=== PATIENT | male | born 1990 | race African-American/Black ===

== ENCOUNTER 2020-10-24 08:38 | Emergency (ER) | payer MEDICAID, MEDICARE ==
[2020-10-24] MEDS ORDERED: Sodium Chloride 0.9% 1,000 ML IV ONE (08:44)
[2020-10-24] MEDS ORDERED: Sodium Chloride 0.9% 2.5 ML Syringe FLUSH PRN (08:44)
[2020-10-24] MEDS ORDERED: Sodium Chloride 0.9% 10 ML Syringe FLUSH PRN (08:44)
--- NOTE | 2020-10-24 08:45 | EDM.PDOC ---
ED HPI GENERAL MEDICAL PROBLEM - General Chief Complaint: Gastrointestinal Problem Stated Complaint: ABDOMINAL PAIN LOOSE STOOL Time Seen by Provider: 10/24/20 08:44 Source of Information: Reports: Patient History Limitations: Reports: No Limitations - History of Present Illness INITIAL COMMENTS - FREE TEXT/NARRATIVE: 29-year-old male presents for abdominal pain and diarrhea. Past surgical history appendectomy, no medical history. He has noted diarrhea times roughly 8 episodes per day for 7 days. No associated nausea or vomiting. He does experience generalized cramping abdominal pain that seems to be relieved after episodes of diarrhea. Is worse in his left lower quadrant. No recent antibiotic use. No fevers. - Related Data Allergies Allergy/AdvReac Type Severity Reaction Status Date / Time No Known Allergies Allergy Verified 10/24/20 09:14 Home Meds: Home Meds Ciprofloxacin [Ciprofloxacin HCl] 500 mg PO BID 5 Days #10 tab 10/24/20 [Rx] Losartan [Cozaar] 25 mg PO DAILY #30 tab 10/24/20 [Rx] ED ROS GENERAL - Review of Systems Review Of Systems: Comprehensive ROS is negative, except as noted in HPI. ED EXAM, GENERAL - Physical Exam Exam: See Below Exam Limited By: No Limitations General Appearance: Alert, WD/WN, No Apparent Distress Ears: Hearing Grossly Normal Throat/Mouth: Normal Voice, No Airway Compromise Head: Atraumatic, Normocephalic Neck: Normal Inspection Respiratory/Chest: No Respiratory Distress, Lungs Clear, Normal Breath Sounds, No Accessory Muscle Use Cardiovascular: Normal Peripheral Pulses, Regular Rate, Rhythm GI/Abdominal: Soft, Other (Left lower quadrant tenderness to palpation). No: Guarding, Rigid Extremities: Normal Inspection Neurological: Alert, Normal Cognition, Normal Gait Psychiatric: Normal Affect, Normal Mood Skin Exam: Warm, Dry, Intact, Normal Color Course - Vital Signs Last Recorded V/S: Last Vital Signs Temp 97.9 F 10/24/20 08:50 Pulse 103 H 10/24/20 10:54 Resp 16 10/24/20 10:54 BP 116/66 10/24/20 10:54 Pulse Ox 96 10/24/20 10:54 - Orders/Labs/Meds Orders: Active Orders 24 hr Category Date Time Status OVA & PARASITES BY IMMUNOASSAY [MREF] Stat Lab 10/24/20 09:20 Ordered STOOL CULTURE/SHIGA TOXIN [MREF] Stat Lab 10/24/20 09:20 Ordered Sodium Chloride 0.9% [Saline Flush] Med 10/24/20 08:44 Active 10 ml FLUSH ASDIRECTED PRN Sodium Chloride 0.9% [Saline Flush] Med 10/24/20 08:44 Active 2.5 ml FLUSH ASDIRECTED PRN Saline Lock Insert [OM.PC] Stat Oth 10/24/20 08:44 Ordered Medication Orders Sodium Chloride (Sodium Chloride 0.9% 10 Ml Syringe) 10 ml FLUSH ASDIRECTED PRN PRN Reason: Keep Vein Open Last Admin: 10/24/20 09:07 Dose: 10 ml Documented by: LIZ Sodium Chloride (Sodium Chloride 0.9% 2.5 Ml Syringe) 2.5 ml FLUSH ASDIRECTED PRN PRN Reason: Keep Vein Open Last Admin: 10/24/20 09:07 Dose: 2.5 ml Documented by: LIZ Labs: Laboratory Tests 10/24/20 10/24/20 Range/Units 09:35 09:35 WBC 6.62 (4.0-11.0) K/uL RBC 5.18 (4.50-5.90) M/uL Hgb 16.0 (13.0-17.0) g/dL Hct 48.2 (38.0-50.0) % MCV 93.1 (80.0-98.0) fL MCH 30.9 (27.0-32.0) pg MCHC 33.2 (31.0-37.0) g/dL RDW Std Deviation 48.8 (28.0-62.0) fl RDW Coeff of Melyssa 14 (11.0-15.0) % Plt Count 284 (150-400) K/uL MPV 10.20 (7.40-12.00) fL Neut % (Auto) 34.7 L (48.0-80.0) % Lymph % (Auto) 48.0 H (16.0-40.0) % [place] % (Auto) 14.7 (0.0-15.0) % Eos % (Auto) 2.1 (0.0-7.0) % Baso % (Auto) 0.5 (0.0-1.5) % Neut # (Auto) 2.3 (1.4-5.7) K/uL Lymph # (Auto) 3.2 H (0.6-2.4) K/uL [place] # (Auto) 1.0 H (0.0-0.8) K/uL Eos # (Auto) 0.1 (0.0-0.7) K/uL Baso # (Auto) 0.0 (0.0-0.1) K/uL Nucleated RBC % 0.0 /100WBC Nucleated RBCs # 0 K/uL Sodium 143 (136-148) mmol/L Potassium 3.8 (3.5-5.1) mmol/L Chloride 107 (98-107) mmol/L Carbon Dioxide 30.0 (21.0-32.0) mmol/L BUN 8 (7.0-18.0) mg/dL Creatinine 1.1 (0.8-1.3) mg/dL Est Cr Clr Drug Dosing 99.09 mL/min Estimated GFR (MDRD) > 60.0 ml/min Glucose 95 (74-106) mg/dL Calcium 8.6 (8.5-10.1) mg/dL Magnesium 2.2 (1.8-2.4) mg/dL Total Bilirubin 0.6 (0.2-1.0) mg/dL AST 29 (15-37) IU/L ALT 41 (14-63) IU/L Alkaline Phosphatase 104 (46-116) U/L Total Protein 8.7 H (6.4-8.2) g/dL Albumin 3.6 (3.4-5.0) g/dL Globulin 5.1 H (2.6-4.0) g/dL Albumin/Globulin Ratio 0.7 L (0.9-1.6) Lipase 79 (73-393) U/L Meds: Medications Generic Name Dose Route Start Last Admin Trade Name Freq PRN Reason Stop Dose Admin Sodium Chloride 10 ml 10/24/20 08:44 10/24/20 09:07 Sodium Chloride 0.9% 10 Ml Syringe FLUSH 10 ml ASDIRECTED PRN Administration Keep Vein Open Sodium Chloride 2.5 ml 10/24/20 08:44 10/24/20 09:07 Sodium Chloride 0.9% 2.5 Ml Syringe FLUSH 2.5 ml ASDIRECTED PRN Administration Keep Vein Open Discontinued Medications Generic Name Dose Route Start Last Admin Trade Name Freq PRN Reason Stop Dose Admin Sodium Chloride 1,000 mls @ 999 mls/hr 10/24/20 08:44 10/24/20 09:00 Normal Saline IV 10/24/20 09:44 999 mls/hr .Bolus ONE Administration Iopamidol 100 ml 10/24/20 10:46 10/24/20 10:48 Iopamidol 755 Mg/Ml 500 Ml Multipack Bottle IVPUSH 10/24/20 10:47 100 ml ONETIME STA Administration Labetalol HCl 20 mg 10/24/20 10:15 10/24/20 10:22 Labetalol 100 Mg/20 Ml Mdv IVPUSH 10/24/20 10:16 20 mg ONETIME ONE Administration Protocol - Re-Assessments/Exams Free Text/Narrative Re-Assessment/Exam: 10/24/20 09:24 We will give IV fluid bolus. Will get CT scanning of the abdomen and pelvis to rule out diverticulitis versus other emergent intra-abdominal pathology. We will send stool studies if patient is able to provide a sample. 10/24/20 10:21 Patient noted to have hypertension to systolic 200s. Will change order to a CTA of the abdomen and pelvis although my suspicion of dissection or aneurysm is quite low. Labetalol 20 mg ordered. 10/24/20 11:56 CT imaging is unremarkable. Will discharge patient with prescription for stool studies, 5-day course of ciprofloxacin, losartan for hypertension. Departure - Departure Time of Disposition: 11:56 Disposition: Home, Self-Care 01 Condition: Good Clinical Impression: Diarrhea Qualifiers: Diarrhea type: unspecified type Qualified Code(s): R19.7 - Diarrhea, unspecified - Discharge Information Prescriptions: Ciprofloxacin [Ciprofloxacin HCl] 500 mg PO BID 5 Days #10 tab Losartan [Cozaar] 25 mg PO DAILY #30 tab Instructions: Diarrhea, Adult Referrals: PCP,Not In Area [Primary Care Provider] - Forms: ED Department Discharge Additional Instructions: Your emergency department work-up was unremarkable. Your white blood cell count is normal. Your CT scan was normal. Your blood pressure is quite high. I prescribed an antihypertensive and sent to your pharmacy. It is a relatively low dose because we like to start low and increase if needed so it might not be enough to control your blood pressure. Also prescribed a 5-day course of ciprofloxacin which is an antibiotic. We have given you a prescription for stool studies if symptoms do not improve for further work-up of your diarrhea. The following information is given to patients seen in the emergency department who are being discharged to home. This information is to outline your options for follow-up care. We provide all patients seen in our emergency department with a follow-up referral. The need for follow-up, as well as the timing and circumstances, are variable depending upon the specifics of your emergency department visit. If you don't have a primary care physician on staff, we will provide you with a referral. We always advise you to contact your personal physician following an emergency department visit to inform them of the circumstance of the visit and for follow-up with them and/or the need for any referrals to a consulting specialist. The emergency department will also refer you to a specialist when appropriate. This referral assures that you have the opportunity for follow-up care with a specialist. All of these measure are taken in an effort to provide you with optimal care, which includes your follow-up. Under all circumstances we always encourage you to contact your private physician who remains a resource for coordinating your care. When calling for follow-up care, please make the office aware that this follow-up is from your recent emergency room visit. If for any reason you are refused follow-up, please contact the [facility] Emergency Department at and asked to speak to the emergency department charge nurse. Please follow up with your primary care physician. If you do not have a primary care physician, see below: [facility] [address] [place] [id number] [facility] [address] [place] [id number] [facility] [address] [place] [id number] Sepsis Event Note (ED) - Focused Exam Vital Signs: Vital Signs Temp Pulse Resp BP Pulse Ox 10/24/20 10:54 103 H 16 116/66 96 10/24/20 10:10 93 16 219/116 H 98 10/24/20 08:50 97.9 F 102 H 16 188/112 H 95 - My Orders Last 24 Hours: My Active Orders 10/24/20 08:44 Sodium Chloride 0.9% [Saline Flush] 10 ml FLUSH ASDIRECTED PRN Sodium Chloride 0.9% [Saline Flush] 2.5 ml FLUSH ASDIRECTED PRN Saline Lock Insert [OM.PC] Stat 10/24/20 09:20 OVA & PARASITES BY IMMUNOASSAY [MREF] Stat STOOL CULTURE/SHIGA TOXIN [MREF] Stat - Assessment/Plan Last 24 Hours: My Active Orders 10/24/20 08:44 Sodium Chloride 0.9% [Saline Flush] 10 ml FLUSH ASDIRECTED PRN Sodium Chloride 0.9% [Saline Flush] 2.5 ml FLUSH ASDIRECTED PRN Saline Lock Insert [OM.PC] Stat 10/24/20 09:20 OVA & PARASITES BY IMMUNOASSAY [MREF] Stat STOOL CULTURE/SHIGA TOXIN [MREF] Stat
[2020-10-24 10:11] LABS: BLOOD UREA NITROGEN,BUN 8 mg/dL (7.0-18.0); CHLORIDE,CL 107 mmol/L (98-107); GLUCOSE RANDOM 95 mg/dL (74-106); LIPASE 79 U/L (73-393); POTASSIUM,K 3.8 mmol/L (3.5-5.1); SODIUM,NA 143 mmol/L (136-148)
[2020-10-24] MEDS ORDERED: Labetalol 100 MG/20 ML MDV IVPUSH ONE (10:15)
[2020-10-24] MEDS ORDERED: Iopamidol 755 MG/ML 500 ML Multipack Bottle IVPUSH STA (10:46)
--- NOTE | 2020-10-24 11:54 | CT ---
INDICATION: Left lower quadrant pain and hypertensive. Assess for etiology of hypertension and left lower quadrant pain. COMPARISON: None TECHNIQUE: CT examination of the abdomen and pelvis was performed following the uneventful intravenous administration of 100 cc of Isovue 3 set. Thin section axial images were obtained from the lung bases through the pubic symphysis. Oral contrast was not administered. The study was performed as thin-section axial images timed as a systemic arterial angiogram. Sagittal and coronal reformatted imaging was performed Please note that all CT scans at this facility use dose modulation, iterative reconstruction, and/or weight-based dosing when appropriate to reduce radiation dose to as low as reasonably achievable. FINDINGS: LUNG BASES: The lung bases as visualized appear normal.The heart size is normal at the lung bases. LIVER/BILIARY SYSTEM:Hepatic steatosis. No focal mass or biliary ductal dilatation. Gallbladder appears normal ADRENALS: Normal KIDNEYS, URETERS and BLADDER:The kidneys appear normal. No visible mass, calculus or hydronephrosis. The ureters and bladder as visualized appear normal. SPLEEN:Normal appearance. PANCREAS: Appears normal. RETROPERITONEUM and MESENTERY: There is no mass, adenopathy or aortic aneurysm. GASTROINTESTINAL SYSTEM: There is no evidence of diverticulitis, colitis, mechanical obstruction. The small bowel as visualized appears normal.There are a few sigmoid diverticula but there is no evidence of diverticulitis or colitis. The colon is collapsed and thick-walled so I believe this is due to fatty infiltration rather than inflammation. The appendix appears to be surgically absent. The small bowel appears normal. PELVIS: No mass, adenopathy or free fluid. OSSEOUS STRUCTURES and ABDOMINAL WALL: There is an age-appropriate appearance of the osseous structures.No significant abdominal wall defect. OTHER: No free fluid or free air. Systemic arterial angiogram: Normal. No evidence of renal artery stenosis IMPRESSION: 1. Mild sigmoid diverticulosis but no evidence of diverticulitis, colitis or obstruction. No specific visible etiology for left lower quadrant abdominal pain. 2. The systemic arterial angiogram portion of the study is normal Please note that all CT scans at this facility use dose modulation, iterative reconstruction, and/or weight-based dosing when appropriate to reduce radiation dose to as low as reasonably achievable. Dictated by Brandt Calvo MD @ Oct 24 2020 11:19AM Signed by Dr. Brandt Calvo @ Oct 24 2020 11:52AM
== END 2020-10-24 12:17 | disposition home or self-care (01) ==
LOC: MW.ED 08:38
DX: R19.7 Diarrhea, unspecified (principal); Z79.899 Other long term (current) drug therapy
CPT/HCPCS: 36415; 74174; 80053; 83690; 83735; 85025; 96374; 99284; J3490; J7030; Q9967